=== PATIENT | female | born 1950 | race Caucasian/White ===

== ENCOUNTER → 2023-07-10 | Day surgery (SDC) | payer MEDICARE, MEDICAID ==
[~2023-07-10] VITALS: Ht 163.8 cm; Wt 62.6 kg
[~2023-07-10] MED LIST: BALANCED SALT IRRIG SOLN COMB1 500ML OP SCH; CHLO25TA27 PO; CYCLOPENTOLATE HCL 1% OPHTH DROPS 2ML LEFTEYE NR; FENTANYL CITRATE/PF 50MCG/ML 2ML VIAL ONE; HYALURONATE SODIUM 10 MG/ML 0.55ML SYRINGE IO ONE; KETOROLAC 30MG/ML VIAL ONE; LEVO50TA8 PO; LOSA100T33 PO; MIDAZOLAM HCL 2 MG/2 ML VIAL ONE; PHENYLEPHRINE HCL 10% OPHTH DROPS 5ML LEFTEYE NR; TROPICAMIDE 1% OPHTH DROPS 15ML LEFTEYE NR; TRYPAN BLUE 0.5 ML DISP.SYRIN IO ONE
[2023-07-10] MEDS: LACTATED RINGERS 1,000 ML IV SCH (09:55)
== END | disposition home or self-care (01) ==
LOC: OR 07:51
PROVIDERS: ATTEND Ophthalmology
DX: H25.22 Age-related cataract, morgagnian type, left eye (principal); I10 Essential (primary) hypertension; E03.9 Hypothyroidism, unspecified; M81.0 Age-related osteoporosis without current pathological fracture; F17.210 Nicotine dependence, cigarettes, uncomplicated; Z88.5 Allergy status to narcotic agent; Z79.899 Other long term (current) drug therapy; Z98.890 Other specified postprocedural states
CPT/HCPCS: 66984; J3010; Q9957; J1885; J2250; J3490; A4217; Z7610 ×16; V2632